=== PATIENT | female | born 1990 | race Caucasian/White ===

== ENCOUNTER 2016-04-15 10:41 | Inpatient (IN) | payer OTHER ==
[2016-04-15] MEDS ORDERED: OXYTOCIN 10 UNITS/ML VIAL IM ONE (11:09)
[2016-04-15] MEDS ORDERED: OXYTOCIN IN LR 500 ML IV ONE (11:09)
[2016-04-15] MEDS ORDERED: LACTATED RINGERS 1,000 ML IV PRN (11:09)
[2016-04-15] MEDS ORDERED: MINERAL OIL 25 ML BOT ONE (11:14)
[2016-04-15] MEDS ORDERED: PUMP TUBING ONE (11:14)
[2016-04-15] MEDS ORDERED: LIDOCAINE Viscous 2% 15 ML UDCUP ONE (11:14)
[2016-04-15] MEDS ORDERED: IV START KIT ONE (11:14)
[2016-04-15] MEDS ORDERED: LIDOCAINE 1% (PRES FREE) 30 ML VIAL ONE (11:14)
[2016-04-15 11:27] LABS: AMPHETAMINES/METHAMPHETAMINES NEGATIVE (NEGATIVE); COCAINE NEGATIVE (NEGATIVE); MARIJUANA NEGATIVE (NEGATIVE); METHADONE NEGATIVE (NEGATIVE); OPIATES NEGATIVE (NEGATIVE); TRICYCLIC ANTIDEPRESSANTS NEGATIVE (NEGATIVE)
[2016-04-15 11:35] VITALS: BMI 25.4
[2016-04-15] MEDS ORDERED: FENTANYL/ROPIVACAINE EPIDURAL 0 ML EP ONE (11:56)
[2016-04-15] MEDS ORDERED: EPIDURAL PUMP SET ONE (11:56)
[2016-04-15] MEDS ORDERED: FENTANYL 100 MCG/2 ML VIAL ONE (12:09)
[2016-04-15 12:23] LABS: HEMATOCRIT 34.6 % (37.0-47.0); HEMOGLOBIN 11.9 gm/l (12.0-16.0); MEAN CELL VOLUME 96.9 fl (81.0-99.0); MEAN CORPUSCULAR HEMOGLOBIN 33.3 pg (27.0-31.0); MEAN CORPUSCULAR HGB CONC 34.4 g/dl (33.0-37.0); RED CELL DISTRIBUTION WIDTH 11.8 % (11.5-14.5)
[2016-04-15] MEDS: HYDROCODONE/ACETAMINOPHEN 5/325MG TABLET PO PRN ×2 (13:00→19:58)
--- NOTE | 2016-04-15 15:09 | HP ---
QAMAR AUSTIN [id number] DATE OF ADMISSION: 04/15/2016 HISTORY: The patient is a 26-year-old woman, 6, para 3, with gestational age of 38 weeks and 6 days, due date 04/23/2016. She presents to the labor unit complaining of contracts. She received her care on [place] and has decided to deliver here. COURSE: Patient denies any problems. She states she had an ultrasound every month due to the history of low birthweight incident on a previous . Her ultrasounds have been normal. Her last visit was approximately 1 week ago. Her records have been requested and are not available yet. By report, however, her vaginal beta strep test is negative and her RH is positive. PAST MEDICAL HISTORY: No chronic illness. MEDICATIONS: 1. Vitamins. 2. Evening [place] oil. ALLERGIES: AMOXICILLIN (NAUSEA AND DIARRHEA), MORPHINE (HIVES). OBSTETRIC HISTORY: 1. 2011 vaginal at 37 weeks, weighed 4 pounds 6 ounces and had low blood sugar. 2. 2009 vaginal delivery 7 pound 3 ounce . 3. 2008 vaginal delivery 8 pound 8 ounce infant. 4. Miscarriage x3 without dilatation and curettage. PAST SURGICAL HISTORY: Patient had surgery on her pinky finger; she also had excision of neck nodes which was benign. HABITS: Tobacco none. REVIEW OF SYSTEMS: She has an upper respiratory infection at the present time for the past 2 days which consists of a cough. She has not had a fever. She has no nausea, vomiting, diarrhea, or constipation. She has no urinary tract infections. She has noticed decreased movement for the past week. She had some bleeding approximately 8:30; however, has not had any rupture of membranes. 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 PHYSICAL EXAMINATION: GENERAL: This is a slender woman in active labor. HEENT: Remarkable for piercings. CHEST: Clear in all gary. HEART: Tachy and regular, no murmur appreciated. ABDOMEN: Nontender, gravid. EXTREMITIES: Show no edema. Calves are nontender. PELVIC: Did show a pelvic exam by the admitting nurse. She is 4 cm dilated. Cardiotocograph shows a reactive heart rate tracing with frequent uterine contractions. ASSESSMENT AND PLAN: 1. at term, active labor, expect vaginal . Patient is requesting epidural anesthesia, preparations are underway for that. However, she proceeded into labor and delivery before this could be arranged. 2. Anemia, mild, chronic, iron-deficiency. 3. Desired sterilization. Patient requests tubal sterilization. She states she does not want any more children and that four is enough. We discussed alternatives to the tubal sterilization. We discussed the basic operative technique of sterilization as well as the anesthesia options. We discussed the expected postprocedure course. Discussed surgical risks. Patient's questions were answered and consent is to be signed. She understands this will be performed tomorrow by the on-call doctor for tomorrow. 4. Social issues, plan social work consult. GREY/aliza
--- NOTE | 2016-04-15 19:22 | L&D NOTE ---
QAMAR AUSTIN [id number] DATE OF DELIVERY: 04/15/2016 HISTORY: The patient is a 26-year-old woman 6, now para 4 who presented at 38+ weeks of in active labor. COURSE OF LABOR AND DELIVERY FOLLOWS: The patient was 4 cm dilated on presentation. There was a bulging bag according to admitting nurse. She requested an epidural for labor analgesia, during the admission process and while she was being hydrated, her membranes ruptured with abundant clear fluid. Her cervix was checked and she was completely and the fetus was presenting at a low station. There was reassuring surveillance and clear amniotic fluid throughout her labor and delivery. She did have some deep variables immediately prior to delivery. There was a short second stage. The head was delivered in a direct occiput posterior position, the head turned toward a left occiput anterior position. There was no nuchal cord. Anterior shoulder which was the right shoulder was delivered by maternal effort without difficulty, overt delay, or any maneuvers required. There was no shoulder distortion. The posterior shoulder followed. The trunk and extremities followed. The was placed on the mother's abdomen. Delayed cord clamping followed. The cord was then clamped and cut by the mother. The patient was delivered of a vigorous male , Apgars of 9 and 9, weight is pending at this time. Following the cord clamping, the patient was given high dose Pitocin in the IV for active management of third stage. The perineum was inspected and found to be intact. The placenta was delivered soon thereafter. It appeared normal and intact without meconium stain. Fundal pressure was applied. Mother and child were left in the delivery room in stable condition. COMPLICATIONS: None. QUANTITATIVE BLOOD LOSS: 100 mL. SPECIMENS: None. GREY/aliza
[2016-04-16] MEDS ORDERED: LACTATED RINGERS 1,000 ML ONE (00:14)
[2016-04-16] MEDS: HYDROCODONE/ACETAMINOPHEN 5/325MG TABLET PO PRN ×6 (00:20→22:53)
[2016-04-16] MEDS: LACTATED RINGERS 1,000 ML IV SCH (00:21)
[2016-04-16] MEDS ORDERED: FENTANYL 100 MCG/2 ML VIAL ONE (08:01)
[2016-04-16] MEDS ORDERED: MIDAZOLAM HCL 1 MG/ML 2ML VIAL ONE ×2 (08:01→08:28)
[2016-04-16] MEDS ORDERED: SPINAL PROCEDURAL TRAY 1 EACH ONE (08:01)
[2016-04-16] MEDS ORDERED: ONDANSETRON 4 MG/2ML 2 ML VIAL ONE (08:43)
--- NOTE | 2016-04-16 09:10 | CONS ---
BECCA AUSTIN : 1990 [id number] DATE OF ADMISSION: April 16, 2016 HISTORY OF PRESENT ILLNESS: Becca Austin is a 26-year-old female who was admitted by Dr. Alvarado for labor at term. She underwent a vaginal delivery and is now requesting a tubal ligation for multiparity. She did sign a consent which is over 30 days old. Risks, reasons, complication, living will, and alternatives discussed. Failure rate quoted as 2% discussed. All questions were answered in simple terms in the witness of a third green party. OB HISTORY: 6, para 4, 0/2/4, four vaginal deliveries and two spontaneous abortions. [employer] LEAK TESTER HISTORY: Menarche 13 times 28 times 7. Sexually transmitted disease, negative. PAST MEDICAL HISTORY: Negative. ALLERGIES: 1. AMOXICILLIN. 2. MORPHINE. MEDICATIONS: Vitamins. SOCIAL HISTORY: Nonsmoker, nondrinker. PAST SURGICAL HISTORY: 1. She had a lymph node removed from her neck area. 2. She had hand surgery on her pinkie. 3. She had tubes placed in her ears. FAMILY HISTORY: Family history is positive for heart and diabetes. REVIEW OF SYSTEMS: Noncontributory. PHYSICAL EXAM: GENERAL: This is a healthy female in no acute distress. HEENT: Normal. LUNGS: Clear. BREAST: Exam was deferred. HEART: Regular sinus rhythm, no murmurs. ABDOMEN: Benign. Fundus at 20 week by size. PELVIC: Exam deferred. LOWER EXTREMITIES: Negative. IMPRESSION: Multiparity. PLAN: Plan is a tubal ligation by [place] technique.
[2016-04-16] MEDS ORDERED: MAGNESIUM HYDROXIDE 30 ML UDCUP PO PRN (09:26)
[2016-04-16] MEDS ORDERED: BENZOCAINE/MENTHOL 60 APPLIC/BOT TP PRN (09:26)
[2016-04-16] MEDS ORDERED: SENNOSIDES 8.6 MG TABLET PO PRN (09:26)
[2016-04-16] MEDS ORDERED: LANOLIN 50 APPLIC/7G TUBE TP PRN (09:26)
--- NOTE | 2016-04-16 09:26 | PCMBPN ---
Brief Post Op Note: Date of Procedure: 04/16/16 Start Time: Preoperative Diagnosis: 1. multiparity Postoperative Diagnosis: 1. Same Procedure: bilateral tubal ligation by nicholas technique Surgeon: Gilson Crocker Assist: Anesthesia: mr odonnell, spinal Findings: uterine fundus at 18 weeks, both ovaries and tubes normal Condition: stable Complications: none IV Fluids: mLs of LR Urine Output: mLs Estimated Blood Loss: 5 mLs Specimens: portion of right and left fallopian tubes closure: sal patient tolerated procedure well and was returned to recovery room in stable condition.
--- NOTE | 2016-04-16 09:53 | OP ---
QAMAR AUSTIN : 1990 [id number] DATE OF OPERATION: April 16, 2016 OPERATION: BILATERAL TUBAL LIGATION BY TEOFILO TECHNIQUE. PREOPERATIVE DIAGNOSIS: Multiparity. POSTOPERATIVE DIAGNOSIS: Multiparity. SURGEON: Gilson Crocker M.D. ANESTHESIA: Bernardino Terrell C.R.N.A., spinal anesthesia. PROCEDURE: With the patient in the supine position under spinal anesthesia, the abdomen was prepared with Chloraprep and draped in the usual manner. After a timeout was performed, the skin was tested and found to be with complete anesthesia. Two Allis clamps were used to grasp the skin lateral to the umbilicus, and a subumbilical incision was made with a knife. The knife was then used to dissect down through the subcutaneous tissue to the rectus abdominis fascia which was nicked with the knife and carried laterally with Montoya scissors. Allis clamps were then used to grasp the peritoneum. The peritoneum was then entered by sharp dissection using Metzenbaum scissors. It was then stretched laterally. Findings included a uterine fundus, 18 weeks size, both ovaries and tubes appeared normal. Felecia retractors were used to retract the skin and the right fallopian tube was identified down to its fimbriated portion, grasped in its mid portion with a [place] clamp and brought through the incision gently. A knuckle of tube was created by using a #3-0 plain suture placed through the mesosalpinx and around the tube creating a knuckle of tube. This was held in place with a Christine clamp and then a free tie of #2-0 plain was placed beneath the first suture and then a knuckle of tube was dissected away. The edges were Bovied resulting in complete hemostasis. A similar procedure was performed on the opposite tube making sure to identify it down to its fimbriated portion. Now with complete hemostasis, the retractors were removed, and with sponge and instrument count reported as correct and with complete hemostasis, the rectus abdominis fascia and peritoneum were grasped at either corner with Allis clamps and then reapproximated with #1 Vicryl continuous sutures just locking the first stitch. Subcutaneous bleeding points were Bovied prior to closure of skin. The skin was closed with sal. Estimated blood loss 5 mL. Patient tolerated the procedure well and was returned to the recovery room in stable condition. FINAL DIAGNOSIS: As above.
[2016-04-16] MEDS: IBUPROFEN 800 MG TABLET PO PRN ×2 (10:33→18:27)
[2016-04-17] MEDS: HYDROCODONE/ACETAMINOPHEN 5/325MG TABLET PO PRN ×3 (02:42→07:46)
[2016-04-17] MEDS: IBUPROFEN 800 MG TABLET PO PRN (02:42)
[2016-04-17] MEDS: LACTATED RINGERS 1,000 ML IV SCH (07:01)
[2016-04-17 07:04] LABS: HEMATOCRIT 31.4 % (37.0-47.0); HEMOGLOBIN 10.6 gm/l (12.0-16.0)
[2016-04-17 07:57] VITALS: BP 117/60
[2016-04-17] MEDS ORDERED: OXYCODONE/ACETAMINOPHEN 5/325 MG TABLET PO PRN (08:23)
[2016-04-17] MEDS ORDERED: IBUPROFEN 800 MG TABLET PO PRN (08:23)
--- NOTE | 2016-04-17 08:37 | PDOC39B ---
Hospital Course: ADMIT DATE: 04/15/16 DISCHARGE DATE: 04/17/16 ADMISSION DIAGNOSES: Labor at term, multiparity with undesired fertility. PROCEDURES: Spontaneous vaginal , ppartum bilateral tubal ligation. HISTORY OF PRESENT ILLNESS: 26 year old G6 T3 L3 at 38 weeks 6 days presenting with active labor at 4cm. HOSPITAL COURSE: The patient progressed rapidly; no time for epidural. Spontaneous vaginal of 6lb6 baby boy at 12:14 on 04/15/16. Pt had a ppartum BTL on 04/16/16. By day of discharge the patient is ambulating, eating, voiding, and passing flatus without difficulty. Pain is controlled and lochia is appropriate. She is . - Physical Exam Vital Signs: Temp Pulse Resp BP Pulse Ox 98.3 F 86 16 117/60 98 04/17/16 07:15 04/17/16 07:15 04/17/16 07:15 04/17/16 07:15 04/16/16 14:30 General: Afebrile Psych/Mental Status: Mood/Affect Appropriate, Bonding Well Neurological: Normal Speech Lungs: Clear to Auscultation Bilaterally Cardiovascular: Regular Rate and Rhythm Fundus: Firm Abdomen: Normal Bowel Sounds Lochia: Light Skin: Normal Color, Warm, Dry Wound: Dressing Clean/Dry/Intact, Well Approximated (with sal.) Other Findings: Pt c/o some shoulder pain and ppartum cramps. - Discharge Diagnosis (1) (normal spontaneous vaginal delivery) Status: Acute (2) Sterilization Status: Acute - Discharge Plan Condition: Good Disposition: Home Prescriptions: Ibuprofen [IBUPROFEN 800 MG TABLET (SHF)] 800 mg PO Q6H PRN #100 tablet PRN Reason: Pain Oxycodone HCl/Acetaminophen [PERCOCET 5/325 MG TABLET (SHF)] 1 - 2 tab PO Q4H PRN #60 tablet PRN Reason: Pain Follow-Up: Gilson Crocker MD [Staff Physician] - In 2-3 days
== END 2016-04-17 13:30 | disposition home or self-care (01) | DRG 767 ==
LOC: FBCOUT 10:41 → EEVIPCON 10:41 → FBC 10:42 → FBCOUT 11:12 → FBC 11:12
PROVIDERS: ADMIT Obstetrics & Gynecology; ATTEND Obstetrics & Gynecology
PROC: 10E0XZZ Delivery of Products of Conception, External Approach (ICD-10-PCS; principal; 2016-04-15)
PROC: 0UL70ZZ Occlusion of Bilateral Fallopian Tubes, Open Approach (ICD-10-PCS; 2016-04-16)
DX: O62.3 Precipitate labor (principal); O09.43 Supervision of pregnancy with grand multiparity, third trimester; O99.02 Anemia complicating childbirth; D50.9 Iron deficiency anemia, unspecified; Z3A.38 38 weeks gestation of pregnancy; Z37.0 Single live birth; Z30.2 Encounter for sterilization

== ENCOUNTER 2016-07-08 13:22 | Emergency (ER) | payer OTHER ==
[2016-07-08] MEDS ORDERED: IOPAMIDOL 370 (76%) 100 ML VIAL IV ONE (13:23)
[2016-07-08] MEDS ORDERED: LACTATED RINGERS 1,000 ML ONE (15:34)
[2016-07-08] MEDS ORDERED: CLINDAMYCIN HCL 150 MG CAPSULE ONE (15:34)
[2016-07-08 15:37] LABS: ABSOLUTE NEUTROPHIL COUNT 11.5 K/mm3 (1.8-7.7); BASO % 0.2 % (0.2-1.0); HEMOGLOBIN 11.3 gm/l (12.0-16.0); IMM NEUT # 0.1 K/mm3 (0-0.2); IMM NEUT% 0.4 % (0-1); LYMPH # 0.6 (1.0-4.8); LYMPH % 4.3 % (15-45); MEAN CELL VOLUME 96.6 fl (81.0-99.0); MEAN CORPUSCULAR HEMOGLOBIN 32.1 pg (27.0-31.0); MEAN CORPUSCULAR HGB CONC 33.2 g/dl (33.0-37.0); MEAN PLATELET VOLUME 10.2 fl (7.4-10.4); MONO # 0.8 (0.0-0.8); MONO % 6.3 % (4-12); NEUT % 88.8 % (43-75); PLATELET COUNT 228 K/mm3 (130-400); RED CELL DISTRIBUTION WIDTH 11.6 % (11.5-14.5)
[2016-07-08 15:46] LABS: CALCIUM 9.3 mg/dL (8.6-10.3)
--- NOTE | 2016-07-08 15:47 | RAD ---
CHEST - 2 VIEWS COMPARISON: None. HISTORY: Dyspnea. FINDINGS: Views: Frontal and lateral chest Lungs: Normal Heart and vessels: Normal Trachea and bronchi: Normal Mediastinum and safia: Normal Costophrenic sulci: Normal Chest wall and bones: Normal. Upper abdomen: Normal. IMPRESSION: Negative 2 view chest.
--- NOTE | 2016-07-08 16:31 | CT ---
CTA CHEST FOR PE COMPARISON: Chest 2 views, 07/08/2016 HISTORY: Dyspnea on exertion. Elevated d-dimer. Technique: Intravenous injection 80 mL Isovue-370. Using a [employer] Aquilion [address] scanner, following a CT angiogram protocol, images obtained through the thorax. Under concurrent supervision and interpretation, requiring a separate 3-D workstation, the technologist created 3-D CT angiograms. An automated dose reduction technique was used to minimize patient radiation dose. Dose information: DLP(mGycm): 236.00 FINDINGS: Pulmonary arteries and veins: Excellent contrast opacification. No pulmonary embolism. Aorta: Normal Heart and coronary arteries: Normal. Lungs: Normal. Trachea and bronchi: Normal. Mediastinum and safia: Small. Subcarinal calcified lymph node Pleura and pericardium: Normal. Chest wall: Normal. Spine: Normal. Upper abdomen:Normal. 3-D CT angiogram: Normal. IMPRESSION: Normal study. No evidence of pulmonary embolus. Incidentally noted calcified subcarinal mediastinal lymph node. The report was sent to the emergency department electronic medical record system, 07/08/2016 at 16:31.
== END 2016-07-08 17:18 | disposition home or self-care (01) ==
LOC: ED 13:22
DX: N61.0 Mastitis without abscess (principal); R06.02 Shortness of breath; R42 Dizziness and giddiness; R11.0 Nausea
CPT/HCPCS: 83605; 85379; 85025; 80048; 71020; 71275; 99284 ×2; 93005; A9270; J7120; Q9967